=== PATIENT | male | born 1985 | race American Indian/Alaskan Native ===

== ENCOUNTER 2019-11-21 03:59 | Emergency (ER) | payer SELFPAY ==
[2019-11-21 04:50] VITALS: BP 142/87
== END 2019-11-21 07:31 | disposition left against medical advice (07) ==
LOC: ED 03:59
DX: M79.604 Pain in right leg (principal); M79.605 Pain in left leg; Z53.21 Procedure and treatment not carried out due to patient leaving prior to being seen by health care provider